=== PATIENT | male | born 1960 | race Caucasian/White ===

== ENCOUNTER 2025-07-17 11:57 | Emergency (ER) | payer BC, SELFPAY ==
[2025-07-17 11:59] VITALS: BP 150/110; PULSE 115; RESP 16; TEMP 36.6; O2SAT 99; BMI 30.3
--- NOTE | 2025-07-17 12:02 | EX.ED.UPPERE ---
HPI History of Present Illness HPI Narrative: Patient presents with a laceration to his right hand that occurred today. Patient states he cut it on the edge of a piece of metal. Patient is right-hand dominant. Patient states he is unsure of his last tetanus but thinks it has been more than 10 years since his last tetanus. Patient states the bleeding stopped after several minutes of pressure. Patient denies any paresthesias or weakness. Patient denies any other injuries. Chief Complaint: Laceration Informant: patient Occured/Mechanism Comment: Cut on edge of metal Onset/Context/Timing Onset: Today Context: Sudden Onset Timing: Continuous Quality of Pain: - (Stinging) Location: Right hand Worsened by: Nothing Relieved by: Nothing Associated Symptoms Associated Symptoms: Negative for Parasthesia, Weakness or Loss of Funtion Narrative Tetanus Immunization: Unknown PFSH PFSH Medical History no medical history no medical history Home Medications ?Medication ?Instructions ?Recorded ?Last Taken ?Type cephalexin 500 mg capsule 500 mg PO Q6 #40 CAPSULES 07/17/25 Unknown Rx Allergy/AdvReac Type Severity Reaction Status Date / Time codeine AdvReac Intermediate NEEDS Verified 07/17/25 11:58 FOLLOW-UP Surgical History Hx of colonoscopy Hx of endoscopy Social History (Updated 07/17/25 @ 12:13 by Stacey Dunham) housing: house current occupational status: employed Smoking Status: Never smoker ROS ROS ED Constitutional Constitutional ED: Denies chills or fever(s) Eyes Eyes: Denies blurry vision or change in vision ENT ENT ED: Denies rhinorrhea or sore throat Cardiovascular Cardiovascular: Denies chest pain or palpitations Respiratory/Chest Respiratory/Chest: Denies cough or dyspnea Gastrointestinal Gastrointestinal: Denies nausea or vomiting Genitourinary Genitourinary ED: Denies dysuria or hematuria Musculoskeletal Musculoskeletal: Denies back pain or neck pain Integumentary Denies abscess or rash Neurologic Neurologic: Reports headache(s); Denies weakness Allergic/Immunologic Allergic/Immunologic ED: Denies mouth swelling or urticaria EXAM Physical Exam Const Vital Signs: 07/17/25 11:59 Temperature 97.9 F Temperature Source Temporal Pulse Rate 115 H Respiratory Rate 16 Blood Pressure 150/110 H Blood Pressure Mean 123 Pulse Ox 99 Oxygen Delivery Method Room Air Positive well nourished and well developed General Appearance ED: well developed and NAD HEENT Reports moist mucous membranes Neck full ROM Neuro oriented x3, CN's II-XII intact bilaterally, moves all extremities, no focal motor deficits and no sensory deficits noted Sensorium / Orientation: alert Motor Exam: strength 5/5 throughout Psych mental status grossly normal Skin Skin Narrative: There is a 7 cm full-thickness linear laceration over the dorsal aspect of the right hand. There is moderate gapping of the wound margins. There is no active bleeding noted. There are no foreign bodies visualized. Strength is 5/5 in the radial, median, and ulnar areas. Sensation was intact to light touch in all digits. Capillary refill was less than 2 seconds in all digits. MDM MDM MDM Narrative Medical decision making narrative: The wound was cleaned and irrigated with copious amounts of normal saline. The wound was anesthetized with 1% plain lidocaine locally. The wound was closed with 11 simple interrupted #4-0 nylon sutures under sterile technique. Patient tolerated the procedure well. Bacitracin dressing was applied. Patient was given a dose of Keflex here. Patient was given a prescription for Keflex. Patient was instructed to keep the wound clean and dry. Patient was instructed to follow-up with his primary care physician in 7 to 10 days for wound recheck and suture removal. Patient understood and was agreeable with the plan. All questions were answered. History & Record Review Additional record(s) reviewed:: No prior records Discharge Plan Triage Chief Complaint: Laceration ED Provider: Yefri Mendieta Dx/Rx/DC Orders Clinical Impression: Laceration of hand, right, Elevated blood pressure reading Instructions: ED Hand Laceration- All Closures, ED Laceration Minimize Scars Prescriptions: New cephalexin 500 mg capsule 500 mg PO Q6 Qty: 40 0RF Primary Care Provider: Care Physician,No Primary Referrals: Care Physician,No Primary [Primary Care Provider, Medical] Print Language: Kosovan Disposition Disposition: Home, Self Care
[2025-07-17] MEDS: Lidocaine 1% (20 ml mdv) 20 ML Vial INFILT (12:20)
[2025-07-17 13:20] VITALS: BP 138/99; PULSE 94; RESP 16; TEMP 36.6; O2SAT 96
== END 2025-07-17 13:21 | disposition home or self-care (01) ==
LOC: ED 13:11
PROVIDERS: Emergency Provider Emergency Medicine; Visit Provider Emergency Medicine
DX: S61.411A Laceration without foreign body of right hand, initial encounter (principal); W26.8XXA Contact with other sharp object(s), not elsewhere classified, initial encounter; R03.0 Elevated blood-pressure reading, without diagnosis of hypertension; Z23 Encounter for immunization
CPT/HCPCS: 12002; 90471; 90715; 99283; A4216